=== PATIENT | male | born 1980 | race Caucasian/White ===

== ENCOUNTER 2018-07-23 18:38 | Emergency (ER) | payer BC, OTHER ==
[~2018-07-23] VITALS: Ht 180.3 cm; Wt 81.7 kg
[2018-07-23] MEDS ORDERED: SYNTHROID175 MCG PO (19:06)
== END 2018-07-23 21:09 | disposition home or self-care (01) ==
LOC: ED 18:38
DX: S96.912A Strain of unspecified muscle and tendon at ankle and foot level, left foot, initial encounter (principal); E03.9 Hypothyroidism, unspecified; Z88.1 Allergy status to other antibiotic agents; Z79.899 Other long term (current) drug therapy; X50.1XXA Overexertion from prolonged static or awkward postures, initial encounter
CPT/HCPCS: 73610; 73630; 99283